=== PATIENT | female | born 2000 | race Hispanic/Latino ===

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

== ENCOUNTER 2023-07-23 07:26 | Emergency (ER) | payer BC, MEDICAID ==
[~2023-07-23] VITALS: Ht 154.9 cm; Wt 54.4 kg
[2023-07-23 07:56] LABS: BASOPHILS # (AUTO) 0.09 K/uL (0.00-0.20); EOSINOPHILS % (AUTO) 1.1 % (0.0-8.0); HEMATOCRIT 35.6 % (36-48); IMMATURE GRANULOCYTE ABSOLUTE 0.04 K/uL (0-1); LYMPHOCYTES # (AUTO) 2.9 K/uL (1.0-4.8); LYMPHOCYTES % (AUTO) 33.4 % (21.0-51.0); MEAN CORPUSCULAR HEMOGLOBIN 30.9 pg (27.0-33.0); MEAN CORPUSCULAR HGB CONC 33.4 g/dL (32.0-36.0); MEAN CORPUSCULAR VOLUME 92.5 fL (79-99); MONOCYTES # (AUTO) 0.5 K/uL (0.1-1.0); MONOCYTES % (AUTO) 6.2 % (3.0-13.0); NEUTROPHILS # (AUTO) 5.1 K/uL (1.8-7.7); NEUTROPHILS % (AUTO) 57.8 % (40.0-77.0); PLATELET COUNT (AUTO) 350 K/uL (130-400); RED BLOOD CELL COUNT(AUTO) 3.85 MIL/uL (4.00-5.50); RED CELL DISTRIBUTION WIDTH 12.9 % (11.0-15.5); WHITE BLOOD COUNT (AUTO) 8.8 K/uL (4.8-10.8)
[2023-07-23 08:02] LABS: APPEARANCE,URINE CLEAR (CLEAR); BILIRUBIN,URINE NEGATIVE (NEGATIVE); COLOR,URINE LIGHT-YELLOW (YELLOW); GLUCOSE, URINE (UA) NEGATIVE (NEGATIVE); HCG,QUALITATIVE URINE NEGATIVE (NEGATIVE); KETONES,URINE NEGATIVE (NEGATIVE); LEUKOCYTE ESTERASE ,URINE NEGATIVE Leu/uL (NEGATIVE); NITRATE,URINE NEGATIVE (NEGATIVE); OCCULT BLOOD,URINE SMALL (NEGATIVE); PH,URINE 5.5 (5.0-8.0); PROTEIN,URINE NEGATIVE (NEGATIVE); UROBILINOGEN,URINE 0.2 mg/dL (0.2-1.0)
[2023-07-23] MEDS: MORPHINE 4 MG SYG IVP ONE (08:14)
[2023-07-23] MEDS: ONDANSETRON 4MG INJ IVP ONE ×2 (08:14→11:38)
[2023-07-23 08:19] LABS: ADD UA MICROSCOPIC YES
[2023-07-23 08:24] LABS: ALBUMIN 3.6 g/dL (3.5-5.0); BILIRUBIN,TOTAL 0.1 mg/dL (0.2-1.0); CREATININE 0.6 mg/dL (0.5-1.5); POTASSIUM 3.9 mmol/L (3.5-5.1); TOTAL PROTEIN, SERUM 7.6 g/dL (6.0-8.3)
[2023-07-23 08:33] LABS: MUCUS,URINE RARE LPF (None Seen); SQUAMOUS EPITHELIAL CELL,UR RARE /HPF (0-2); URIC ACID CRYSTALS,URINE RARE /LPF (None Seen)
[2023-07-23] MEDS: KETOROLAC 30MG VIAL (30MG/ML) IVP ONE (09:42)
[2023-07-23] MEDS ORDERED: IBUP-2070 PO (11:21)
[2023-07-23] MEDS ORDERED: ONDA4TAB10 PO (11:21)
[2023-07-23 11:50] VITALS: BP 102/78; PULSE 78; RESP 16; O2SAT 98
== END 2023-07-23 11:53 | disposition home or self-care (01) ==
LOC: EDH 07:26
DX: R10.9 Unspecified abdominal pain (principal); N20.0 Calculus of kidney; Z88.8 Allergy status to other drugs, medicaments and biological substances
CPT/HCPCS: 99284; 96374; 76770; 96375; 80053; 83690; 85025; 81001; 81025; 36415; 96376; J2405 ×2; J2270; J1885

== ENCOUNTER 2023-08-25 05:44 | Emergency (ER) | payer BC ==
[~2023-08-25] VITALS: Ht 154.9 cm; Wt 54.4 kg
[~2023-08-25 05:44] MED LIST: IBUP-2070 PO; ONDA4TAB10 PO
[2023-08-25 06:33] LABS: BASOPHILS # (AUTO) 0.05 K/uL (0.00-0.20); BASOPHILS % (AUTO) 0.4 % (0.0-5.0); EOSINOPHILS # (AUTO) 0.25 K/uL (0.00-0.70); HEMATOCRIT 36.3 % (36-48); IMMATURE GRANULOCYTE ABSOLUTE 0.05 K/uL (0-1); LYMPHOCYTES # (AUTO) 3.1 K/uL (1.0-4.8); LYMPHOCYTES % (AUTO) 25.7 % (21.0-51.0); MEAN CORPUSCULAR HEMOGLOBIN 30.8 pg (27.0-33.0); MEAN CORPUSCULAR HGB CONC 33.3 g/dL (32.0-36.0); MEAN CORPUSCULAR VOLUME 92.4 fL (79-99); MONOCYTES # (AUTO) 0.7 K/uL (0.1-1.0); MONOCYTES % (AUTO) 6.1 % (3.0-13.0); NEUTROPHILS % (AUTO) 65.4 % (40.0-77.0); PLATELET COUNT (AUTO) 328 K/uL (130-400); RED BLOOD CELL COUNT(AUTO) 3.93 MIL/uL (4.00-5.50); RED CELL DISTRIBUTION WIDTH 12.8 % (11.0-15.5); WHITE BLOOD COUNT (AUTO) 12.2 K/uL (4.8-10.8)
[2023-08-25 06:46] LABS: ALBUMIN 3.8 g/dL (3.5-5.0); BILIRUBIN,TOTAL 0.3 mg/dL (0.2-1.0); CREATININE 0.7 mg/dL (0.5-1.5); POTASSIUM 3.8 mmol/L (3.5-5.1); TOTAL PROTEIN, SERUM 7.7 g/dL (6.0-8.3)
[2023-08-25] MEDS: 0.9%NACL 1000ML 1,000 ML IV ONE (07:07)
[2023-08-25] MEDS: MORPHINE 4 MG SYG IVP ONE (07:07)
[2023-08-25] MEDS: FAMOTIDINE 20MG VIAL IV ONE (07:07)
[2023-08-25] MEDS: METOCLOPRAMIDE 10 MG/2 ML VIAL IVP ONE (07:07)
[2023-08-25 07:11] LABS: APPEARANCE,URINE CLEAR (CLEAR); BILIRUBIN,URINE NEGATIVE (NEGATIVE); COLOR,URINE LIGHT-YELLOW (YELLOW); GLUCOSE, URINE (UA) NEGATIVE (NEGATIVE); KETONES,URINE 5 mg/dL (NEGATIVE); LEUKOCYTE ESTERASE ,URINE NEGATIVE Leu/uL (NEGATIVE); NITRATE,URINE NEGATIVE (NEGATIVE); OCCULT BLOOD,URINE LARGE (NEGATIVE); PROTEIN,URINE 20 mg/dL (NEGATIVE); UROBILINOGEN,URINE 0.2 mg/dL (0.2-1.0)
[2023-08-25 08:01] LABS: ADD UA MICROSCOPIC YES
[2023-08-25 08:19] LABS: BACTERIA,URINE FEW /HPF (None Seen); MUCUS,URINE RARE LPF (None Seen); RBC,URINE TNTC /HPF (0-1); SQUAMOUS EPITHELIAL CELL,UR RARE /HPF (0-2)
[2023-08-25 09:10] VITALS: BP 104/71; PULSE 83; RESP 18; O2SAT 99
[2023-08-25] MEDS ORDERED: CYCL10TA16 PO (09:30)
[2023-08-25] MEDS ORDERED: IBUP-2076 PO (09:30)
== END 2023-08-25 09:43 | disposition home or self-care (01) ==
LOC: EDH 05:44
DX: N20.0 Calculus of kidney (principal); N23 Unspecified renal colic; R31.9 Hematuria, unspecified; Z88.8 Allergy status to other drugs, medicaments and biological substances
CPT/HCPCS: 99284; 96374; 76770; 96361; 96375; 80053; 84703; 83690; 85025; 81001; 36415; J3490; J7030; J2270; J2765